=== PATIENT | female | born 1970 | race Two or more races ===

== ENCOUNTER 2022-04-16 11:27 | Emergency (ER) | payer SELFPAY ==
[~2022-04-16] VITALS: Ht 157.5 cm; Wt 49.9 kg
[2022-04-16] MEDS ORDERED: ONDANSETRON HCL/PF 4 MG/2 ML VIAL ONE (13:15)
[2022-04-16] MEDS: ONDANSETRON HCL/PF 4 MG/2 ML VIAL IVP ONE (13:17)
[2022-04-16] MEDS: IV NS 0.9% 500 ML BAG IV ONE (13:17)
[2022-04-16 13:23] LABS: EOSINOPHILS % (AUTO) 0.2 % (0.0-6.0); HEMATOCRIT 47 % (33-45); HEMOGLOBIN 15.4 g/dL (11.5-14.8); LYMPHOCYTES # (AUTO) 1.4 K/uL (0.8-4.8); LYMPHOCYTES % (AUTO) 7.7 % (20.0-44.0); MEAN CORPUSCULAR HGB CONC 33 g/dl (31.0-36.0); MEAN CORPUSCULAR VOLUME 87 fL (82-100); MONOCYTES # (AUTO) 0.7 K/uL (0.1-1.30); MONOCYTES % (AUTO) 3.8 % (2.0-12.0); NEUTROPHILS # (AUTO) 15.5 K/uL (1.8-8.9); NEUTROPHILS % (AUTO) 88.3 % (43.0-81.0); PLATELET COUNT (AUTO) 441 K/uL (150-450); RED BLOOD CELL COUNT(AUTO) 5.39 MIL/uL (4.0-5.2); WHITE BLOOD COUNT (AUTO) 17.6 K/uL (4.3-11.0)
[2022-04-16 13:29] LABS: BILIRUBIN,URINE 1+ (NEGATIVE); LEUKOCYTE ESTERASE ,URINE NEGATIVE (NEGATIVE); NITRITE, URINE NEGATIVE (NEGATIVE); PROTEIN,URINE NEGATIVE (NEGATIVE); UGLUCOSE NEGATIVE (NEGATIVE); UROBILINOGEN,URINE 0.2 EU/dL (0.2)
[2022-04-16 13:38] LABS: CALCIUM, SERUM 9.4 mg/dL (8.5-10.1); CREATININE 0.9 mg/dL (0.6-1.3); POTASSIUM 3.2 mmol/L (3.5-5.1)
[2022-04-16 13:43] LABS: COLOR,URINE DARK YELLOW (YELLOW)
[2022-04-16 13:45] LABS: ALBUMIN 4.3 g/dL (3.4-5.0); BILIRUBIN,DIRECT 0.1 mg/dL (0.0-0.2); BILIRUBIN,TOTAL 0.5 mg/dL (0.2-1.0); TOTAL PROTEIN, SERUM 8.7 g/dL (6.4-8.2)
--- NOTE | 2022-04-16 14:00 | NUR ---
Updated with plan of care. Appears comfortable reclining in bed. NO obvious distress
[2022-04-16 14:06] LABS: BACTERIA,URINE Few /HPF (None Seen); SQUAMOUS EPITHELIAL CELL,UR Many /HPF (None Seen); WBC,URINE 0-2 /HPF (0-3)
[2022-04-16] MEDS ORDERED: AMOX-430 PO (14:49)
[2022-04-16] MEDS ORDERED: ONDA4TAB5 PO (14:53)
--- NOTE | 2022-04-16 15:04 | NUR ---
Patient discharged to home in stable condition. Written and verbal after care instructions given. Patient verbalizes understanding of instruction.
[2022-04-16 15:05] VITALS: BP 121/81
== END 2022-04-16 15:07 | disposition home or self-care (01) ==
LOC: ER 11:33
DX: K52.9 Noninfective gastroenteritis and colitis, unspecified (principal); R11.2 Nausea with vomiting, unspecified; Z90.49 Acquired absence of other specified parts of digestive tract; Z90.710 Acquired absence of both cervix and uterus; Z79.899 Other long term (current) drug therapy
CPT/HCPCS: 99284; 74176; 96374; 85025; 80048; 83690; 80076; 81001; 36415; J2405; J7040